=== PATIENT | female | born 1990 | race Caucasian/White ===

== ENCOUNTER → 2020-07-10 10:44 | Outpatient (CLI) | payer BC, SELFPAY ==
--- NOTE | ~2020-07-10 | US_ITS ---
US breast RT complete INDICATION: Right breast lump for 2 months TECHNIQUE: Dedicated right breast ultrasound COMPARISON: No prior studies for comparison. FINDINGS: The right breast is composed of normal heterogeneous echotexture without focal solid or cys tic mass. IMPRESSION: 1: Normal right breast ultrasound. BI-RADS CATEGORY 1 - NEGATIVE Reviewed, dictated and finalized at location A. [employer]
== END ==
PROVIDERS: Visit Provider Student in an Organized Health Care Education/Training Program
DX: N64.59 Other signs and symptoms in breast (principal)
CPT/HCPCS: 76641